=== PATIENT | female | born 1940 | race Caucasian/White ===

== ENCOUNTER → 2016-12-24 | Outpatient (CLI) | payer MEDICARE, BC ==
[~2016-12-24] VITALS: Ht 160 cm; Wt 84.8 kg
[~2016-12-24] MED LIST: AMLO5TAB2 PO; CALCTAB29 PO; COMBAER6 INH; DIOV160T6 PO; FLON1SPR; HYDR25TAB PO; LEVO137T2 PO; METO100T PO; NS 1,000 ML IV ONE; PROPOFOL 200 MG/20 ML VIAL As Ordered ONE; ROPI0.5T PO; VITA100037 PO
--- NOTE | 2016-12-24 09:41 | ROOR ---
Patient Name: Saundra Bedoya Procedure Date: 12/24/2016 9:10 AM Date of : 1940 Age: 76 Room: [facility] Gender: Female Note Status: Finalized Procedure: Total Colonoscopy to Cecum Indications: Screening in patient at increased risk: Colorectal cancer in sister 60 or older, Last colonoscopy: 2007 Providers: Adalberto Paredes MD Referring MD: Refugio Waters MD Requesting Provider: Medicines: Monitored Anesthesia Care Complications: No immediate complications. Procedure: Pre-Anesthesia Assessment: - The heart rate, respiratory rate, oxygen saturations, blood pressure, adequacy of pulmonary ventilation, and response to care were monitored throughout the procedure. The Colonoscope was introduced through the anus and advanced to the cecum, identified by appendiceal orifice and ileocecal valve. The colonoscopy was performed without difficulty. The patient tolerated the procedure well. The quality of the bowel preparation was excellent. Findings: The perianal and digital rectal examinations were normal. Non-bleeding internal hemorrhoids were found during retroflexion. The hemorrhoids were small and Grade I (internal hemorrhoids that do not prolapse). Multiple small and large-mouthed diverticula were found in the recto-sigmoid colon, sigmoid colon and descending colon. The exam was otherwise without abnormality on direct and retroflexion views. Impression: - Non-bleeding internal hemorrhoids. - Diverticulosis in the recto-sigmoid colon, in the sigmoid colon and in the descending colon. - The examination was otherwise normal on direct and retroflexion views. - No specimens collected. - The exam was otherwise normal to the cecum. Recommendation: - Patient has a contact number available for emergencies. The signs and symptoms of potential delayed complications were discussed with the patient. Return to normal activities tomorrow. Written discharge instructions were provided to the patient. - High fiber diet. - Discharge patient to home. - Continue present medications. - Repeat colonoscopy in 5 years for screening purposes. - Return to referring physician. - The findings and recommendations were discussed with the patient's family. Adalberto Paredes MD Adalberto Paredes MD 12/24/2016 9:40:59 AM This report has been signed electronically. Number of Addenda: 0 Note Initiated On: 12/24/2016 9:10 AM Estimated Blood Loss: Estimated blood loss: none.
[2016-12-24 10:01] VITALS: BP 124/73
== END | disposition home or self-care (01) ==
LOC: M OPP 08:27
PROVIDERS: ATTEND Internal Medicine Gastroenterology
DX: Z12.11 Encounter for screening for malignant neoplasm of colon (principal); K64.0 First degree hemorrhoids; K57.30 Diverticulosis of large intestine without perforation or abscess without bleeding; Z80.0 Family history of malignant neoplasm of digestive organs; Z86.010 Personal history of colon polyps; I12.9 Hypertensive chronic kidney disease with stage 1 through stage 4 chronic kidney disease, or unspecified chronic kidney disease; E03.9 Hypothyroidism, unspecified; E04.1 Nontoxic single thyroid nodule; M19.90 Unspecified osteoarthritis, unspecified site; M89.9 Disorder of bone, unspecified; G25.81 Restless legs syndrome; Z78.0 Asymptomatic menopausal state; J44.9 Chronic obstructive pulmonary disease, unspecified; R06.02 Shortness of breath; N18.9 Chronic kidney disease, unspecified; Z87.891 Personal history of nicotine dependence; Z88.8 Allergy status to other drugs, medicaments and biological substances; Z91.012 Allergy to eggs; Z79.899 Other long term (current) drug therapy

== ENCOUNTER → 2017-02-16 | Outpatient (CLI) | payer MEDICARE, BC ==
[~2017-02-16] MED LIST changes: -METO100T PO; +METO100T5 PO; -NS 1,000 ML IV ONE; -PROPOFOL 200 MG/20 ML VIAL As Ordered ONE; -VITA100037 PO; +VITA100067 PO
--- NOTE | 2017-02-18 09:06 | DEXA ---
AP SPINE L1 - L4 1.076 -0.9 0.9 LT FEMUR TOTAL 0.887 -1.0 0.8 RT FEMUR TOTAL 0.822 -1.5 0.3 TOTAL BODY TOTAL OTHER DUAL FEMUR FRAX* ASSESSMENT Risk factors: History of fracture as an adult, premature menopause. 10 year probability of fracture Major osteoporotic fracture 19.1 % Hip fracture 4.6 % COMMENTS: Normal bone densitometry of the spine. There is low bone density of the hips. The increased density of the spine does not represent a significant change. The decreased density of the left hip does not represent a significant change. The decreased density of the right hip does not represent a significant change. The density of the spine has increased 16.6% since the initial exam on 2005. The spine density has increased 1.5% since the most recent exam on 05/05/2014. The density of the left hip has decreased 3.3% since the initial exam on 2002. The density of the left hip has decreased 0.2% since the most recent exam on . The density of the right hip has decreased 10.7% since the initial exam on 01/25. The density of the right hip has decreased 1.7% since the most recent exam on . FOLLOW-UP: Recommendation for the next bone density exam: 2 years. SEAN
== END ==
LOC: M WHC 13:54
PROVIDERS: ATTEND Family Medicine
DX: Z13.820 Encounter for screening for osteoporosis (principal); Z78.0 Asymptomatic menopausal state

== ENCOUNTER → 2017-02-24 | Outpatient (CLI) | payer MEDICARE, BC ==
[2017-02-24 13:28] LABS: MEAN CORPUSCULAR HEMOGLOBIN 31.6 pg (27.0-33.0); MEAN CORPUSCULAR HGB CONC 33.4 g/dl (32.0-36.5); MEAN CORPUSCULAR VOLUME 94.5 fl (80.0-96.0); RED CELL DISTRIBUTION WIDTH 12.4 % (11.5-14.5); WHITE BLOOD COUNT 4.4 K/mm3 (4.0-10.0)
[2017-02-24 13:37] LABS: ALBUMIN 3.7 GM/DL (3.2-5.2); ALBUMIN/GLOBULIN RATIO 1.12 (1.00-1.93); BILIRUBIN,TOTAL 0.4 MG/DL (0.2-1.0); CALCIUM LEVEL 9.3 MG/DL (8.8-10.2); CREATININE FOR GFR 1.01 MG/DL (0.55-1.02); FREE T4 1.17 NG/DL (0.76-1.46); GLOMERULAR FILTRATION RATE 56.9 (>39); POTASSIUM SERUM 3.9 MEQ/L (3.5-5.1)
== END ==
LOC: M WUC 09:05
PROVIDERS: ATTEND Family Medicine
DX: G25.81 Restless legs syndrome (principal); I10 Essential (primary) hypertension; E03.9 Hypothyroidism, unspecified; R73.01 Impaired fasting glucose

== ENCOUNTER → 2017-06-09 | Outpatient (REF) | payer MEDICARE, BC | LOC: M LAB REF 17:21 | PROVIDERS: ATTEND Ophthalmology | DX: L82.1 Other seborrheic keratosis (principal) ==

== ENCOUNTER → 2017-08-27 | Outpatient (CLI) | payer MEDICARE, BC ==
[2017-08-27 17:13] LABS: TOTAL 25(OH) VITAMIN D 34.6 NG/ML (30.0-100.0)
[2017-08-27 18:23] LABS: ALBUMIN 3.7 GM/DL (3.2-5.2); ALKALINE PHOSPHATASE 72 U/L (45-117); ALT/SGPT 17 U/L (12-78); ANION GAP 8 MEQ/L (8-16); AST/SGOT 14 U/L (7-37); BILIRUBIN,TOTAL 0.4 MG/DL (0.2-1.0); BLOOD UREA NITROGEN 15 MG/DL (7-18); CALCIUM LEVEL 8.9 MG/DL (8.8-10.2); CARBON DIOXIDE LEVEL 31 MEQ/L (21-32); CHLORIDE LEVEL 102 MEQ/L (98-107); CREATININE FOR GFR 0.91 MG/DL (0.55-1.02); FERRITIN 102 NG/ML (8-252); FREE T4 1.46 NG/DL (0.76-1.46); GLOMERULAR FILTRATION RATE > 60.0 (>39); GLUCOSE, FASTING 90 MG/DL (83-110); SODIUM LEVEL 141 MEQ/L (136-145); THYROID STIMULATING HORMONE 0.645 uIU/ML (0.358-3.740); TOTAL PROTEIN 7.4 GM/DL (6.4-8.2)
== END ==
LOC: M WUC 11:31
DX: E03.9 Hypothyroidism, unspecified (principal); E55.9 Vitamin D deficiency, unspecified; G25.81 Restless legs syndrome; I10 Essential (primary) hypertension; Z79.899 Other long term (current) drug therapy
CPT/HCPCS: 84443

== ENCOUNTER → 2018-01-28 | Outpatient (CLI) | payer MEDICARE, BC ==
[2018-01-28 12:42] LABS: HEMATOCRIT 44.2 % (36.0-47.0); HEMOGLOBIN 14.3 g/dl (12.0-15.5); MEAN CORPUSCULAR HGB CONC 32.4 g/dl (32.0-36.5); MEAN CORPUSCULAR VOLUME 92.9 fl (80.0-96.0); PLATELET COUNT, AUTOMATED 254 10^3/uL (150-450); RED BLOOD COUNT 4.76 10^6/uL (4.00-5.40); RED CELL DISTRIBUTION WIDTH 12.3 % (11.5-14.5); WHITE BLOOD COUNT 4.6 10^3/uL (4.0-10.0)
[2018-01-28 13:04] LABS: TOTAL 25(OH) VITAMIN D 24.4 NG/ML (30.0-100.0)
[2018-01-28 13:11] LABS: ESTIMATED AVERAGE GLUCOSE 128 MG/DL (60-110); HEMOGLOBIN A1c 6.1 %
[2018-01-28 13:16] LABS: ALBUMIN 3.7 GM/DL (3.2-5.2); ALBUMIN/GLOBULIN RATIO 1.06 (1.00-1.93); ALKALINE PHOSPHATASE 66 U/L (45-117); ALT/SGPT 20 U/L (12-78); ANION GAP 6 MEQ/L (8-16); AST/SGOT 14 U/L (7-37); BILIRUBIN,TOTAL 0.4 MG/DL (0.2-1.0); BLOOD UREA NITROGEN 15 MG/DL (7-18); CALCIUM LEVEL 8.9 MG/DL (8.8-10.2); CARBON DIOXIDE LEVEL 33 MEQ/L (21-32); CHLORIDE LEVEL 102 MEQ/L (98-107); CHOLESTEROL LEVEL 172 MG/DL (<200); CHOLESTEROL RISK RATIO 3.822 (<5); CREATININE FOR GFR 1.07 MG/DL (0.55-1.30); FREE T4 1.22 NG/DL (0.76-1.46); GLOMERULAR FILTRATION RATE 53.1 (>39); GLUCOSE, FASTING 92 MG/DL (70-100); HDL CHOLESTEROL 45 MG/DL (>40); LDL CHOLESTEROL 101.8 MG/DL (<100); NON-HDL-C 127 MG/DL; POTASSIUM SERUM 3.8 MEQ/L (3.5-5.1); SODIUM LEVEL 141 MEQ/L (136-145); THYROID STIMULATING HORMONE 0.966 uIU/ML (0.358-3.740); TOTAL PROTEIN 7.2 GM/DL (6.4-8.2); TRIGLYCERIDES LEVEL 126 MG/DL (<150)
== END ==
LOC: M WUC 09:03
DX: J44.9 Chronic obstructive pulmonary disease, unspecified (principal); R73.03 Prediabetes; E03.9 Hypothyroidism, unspecified; E78.5 Hyperlipidemia, unspecified; E55.9 Vitamin D deficiency, unspecified
CPT/HCPCS: 84443

== ENCOUNTER → 2018-03-05 | Outpatient (CLI) | payer MEDICARE, BC ==
[2018-03-05 13:41] LABS: BASO # 0.1 10^3/uL (0.0-0.2); BASO % 1.9 % (0.0-1.0); EOS # 0.2 10^3/uL (0.0-0.50); EOS % 4.2 % (0.0-3.0); HEMATOCRIT 43.6 % (36.0-47.0); IMMATURE GRANULOCYTE % 0.2 % (0-3.0); LYMPH # 1.4 10^3/uL (1.5-4.5); MEAN CORPUSCULAR HEMOGLOBIN 30.5 pg (27.0-33.0); MEAN CORPUSCULAR HGB CONC 32.1 g/dl (32.0-36.5); MONO # 0.5 10^3/uL (0.0-0.8); MONO % 9.8 % (0.0-5.0); NEUTROPHILS # 2.6 10^3/uL (1.8-7.7); NEUTROPHILS % 54.9 % (36.0-66.0); PLATELET COUNT, AUTOMATED 241 10^3/uL (150-450); RED BLOOD COUNT 4.59 10^6/uL (4.00-5.40); RED CELL DISTRIBUTION WIDTH 12.2 % (11.5-14.5); WHITE BLOOD COUNT 4.8 10^3/uL (4.0-10.0)
[2018-03-05 13:58] LABS: VITAMIN B12 LEVEL 593 PG/ML (247-911)
[2018-03-05 13:59] LABS: FOLATE 10.1 NG/ML (>5.4)
[2018-03-05 14:07] LABS: ALBUMIN 3.6 GM/DL (3.2-5.2); ALBUMIN/GLOBULIN RATIO 1.03 (1.00-1.93); ALKALINE PHOSPHATASE 60 U/L (45-117); ALT/SGPT 19 U/L (12-78); ANION GAP 5 MEQ/L (8-16); AST/SGOT 12 U/L (7-37); BILIRUBIN,TOTAL 0.4 MG/DL (0.2-1.0); BLOOD UREA NITROGEN 15 MG/DL (7-18); CARBON DIOXIDE LEVEL 32 MEQ/L (21-32); CHLORIDE LEVEL 105 MEQ/L (98-107); CREATININE FOR GFR 0.99 MG/DL (0.55-1.30); FERRITIN 84 NG/ML (8-252); GLOMERULAR FILTRATION RATE 58.1 (>39); GLUCOSE, FASTING 89 MG/DL (70-100); POTASSIUM SERUM 3.8 MEQ/L (3.5-5.1); RHEUMATOID FACTOR QUANT < 10.0 IU/ML (<15.0); SODIUM LEVEL 142 MEQ/L (136-145); THYROID STIMULATING HORMONE 0.927 uIU/ML (0.358-3.740); TOTAL PROTEIN 7.1 GM/DL (6.4-8.2)
[2018-03-05 14:21] LABS: ERYTHROCYTE SEDIMENTATION RATE 12 mm/hr (0-30)
[2018-03-05 14:27] LABS: ESTIMATED AVERAGE GLUCOSE 126 MG/DL (60-110)
[2018-03-08 13:51] LABS: ALBUMIN 4.05 GM/DL (3.29-5.55); ALBUMIN % 57.1 % (55.8-66.1); ALPHA-1-GLOBULIN % 4.4 % (2.9-4.9); ALPHA-1-GLOBULINS 0.31 GM/DL (0.17-0.41); ALPHA-2-GLOBULINS 0.75 GM/DL (0.42-0.99); ALPHA-2-GLOBULINS % 10.5 % (7.1-11.8); BETA-1-GLOBULINS % 5.7 % (4.7-7.2); BETA-2-GLOBULINS 0.35 GM/DL (0.19-0.55); BETA-2-GLOBULINS % 4.9 % (3.2-6.5); GAMMA GLOBULIN % 17.4 % (11.1-18.8); GAMMA GLOBULINS 1.24 GM/DL (0.65-1.58)
[2018-03-09 11:13] LABS: DRVV SCREEN 37.3 SEC
[2018-03-09 11:15] LABS: PTT LUPUS TYPE ANTICOAG SCREEN 0.9 (0-1.2)
[2018-03-11 08:11] LABS: ANCA-ATYPICAL <1:20 titer (Neg:<1:20); ANTI DOUBLE STRAND-DNA AB <1 IU/mL (0-9); ANTINUCLEAR ANTIBODIES DIRECT Negative (Negative); CYTOPLASMIC NEUTROP AB ANCA-C <1:20 titer (Neg:<1:20); PERINUCLEAR AB ANCA-P <1:20 titer (Neg:<1:20); SJOGREN'S ANTI SS-A <0.2 AI (0.0-0.9); SJOGREN'S ANTI SS-B <0.2 AI (0.0-0.9); VITAMIN B1 LEVEL WHOLE BLOOD 185.5 nmol/L (66.5-200.0); VITAMIN B6,PYRIDOXAL PHOSPHATE 6.3 ug/L (2.0-32.8); VITAMIN E(ALPHA TOCOPHEROL) 8.3 mg/L (9.0-29.0); VITAMIN E(GAMMA TOCOPHEROL) 1.6 mg/L (0.5-4.9)
== END ==
LOC: M WUC 09:03
DX: G60.9 Hereditary and idiopathic neuropathy, unspecified (principal); Z79.899 Other long term (current) drug therapy; G25.81 Restless legs syndrome; R73.03 Prediabetes; J44.9 Chronic obstructive pulmonary disease, unspecified; E55.9 Vitamin D deficiency, unspecified; E03.9 Hypothyroidism, unspecified; I10 Essential (primary) hypertension; E78.5 Hyperlipidemia, unspecified
CPT/HCPCS: 82746

== ENCOUNTER → 2018-07-07 | Outpatient (CLI) | payer MEDICARE, BC | LOC: M WHC 13:59 | DX: Z12.31 Encounter for screening mammogram for malignant neoplasm of breast (principal) | CPT/HCPCS: 77067 ==

== ENCOUNTER → 2018-07-28 | Outpatient (CLI) | payer MEDICARE, BC ==
[~2018-07-28] MED LIST changes: -AMLO5TAB2 PO; +AMLO5TAB4 PO
[2018-07-28 12:02] LABS: CALCIUM LEVEL 8.7 MG/DL (8.8-10.2); CREATININE FOR GFR 1.04 MG/DL (0.55-1.30); FREE T4 1.18 NG/DL (0.76-1.46); GLOMERULAR FILTRATION RATE 54.8 (>39); POTASSIUM SERUM 3.9 MEQ/L (3.5-5.1); THYROID STIMULATING HORMONE 1.23 uIU/ML (0.358-3.740)
== END ==
LOC: M WUC 09:17
PROVIDERS: ATTEND Family Medicine
DX: E03.9 Hypothyroidism, unspecified (principal); I10 Essential (primary) hypertension

== ENCOUNTER → 2019-01-25 | Outpatient (CLI) | payer MEDICARE, BC ==
[~2019-01-25] MED LIST changes: -AMLO5TAB4 PO; +AMLO5TAB6 PO
[2019-01-25 13:10] LABS: ALBUMIN 3.6 GM/DL (3.2-5.2); BILIRUBIN,TOTAL 0.4 MG/DL (0.2-1.0); CHOLESTEROL RISK RATIO 3.333 (<5); FREE T4 1.26 NG/DL (0.76-1.46); GLOMERULAR FILTRATION RATE 57.2 (>39); POTASSIUM SERUM 3.7 MEQ/L (3.5-5.1); THYROID STIMULATING HORMONE 1.51 uIU/ML (0.358-3.740); TOTAL PROTEIN 7.4 GM/DL (6.4-8.2)
[2019-01-25 13:11] LABS: TOTAL 25(OH) VITAMIN D 42.8 NG/ML (30.0-100.0)
== END ==
LOC: M WUC 10:00
PROVIDERS: ATTEND Family Medicine
DX: I10 Essential (primary) hypertension (principal); E03.9 Hypothyroidism, unspecified; E55.9 Vitamin D deficiency, unspecified

== ENCOUNTER → 2019-04-04 | Outpatient (CLI) | payer MEDICARE, BC ==
--- NOTE | 2019-04-06 15:46 | DEXA ---
AP SPINE L1 - L4 1.058 -1.0 0.8 LT FEMUR TOTAL 0.871 -1.1 0.8 LT NECK 0.793 -1.8 0.3 RT FEMUR TOTAL 0.822 -1.5 0.4 RT NECK 0.752 -2.1 0.0 TOTAL BODY TOTAL OTHER COMMENTS: There is low bone density of the spine and hips. The increased density of the spine does not represent a significant change. The decreased density of the left hip does not represent a significant change. The density of the spine has increased 14.6% since the initial exam on 05/08/2006. The spine density has increased 0.6% since the most recent exam on 02/16/2017. The density of the left hip has decreased 9.9% since the initial exam on 01/25/2003. The density of the left hip has decreased 1.8% since the most recent exam on 02/16/2017. The density of the right hip has decreased 10.7% since the initial exam on 01/25/2003. The density of the right hip is 0.0% since the most recent exam on 02/16/2017. FOLLOW-UP: Recommendation for the next bone density exam: 2 years. SEAN
== END ==
LOC: M WHC 09:55
PROVIDERS: ATTEND Obstetrics & Gynecology
DX: M85.89 Other specified disorders of bone density and structure, multiple sites (principal)

== ENCOUNTER → 2019-10-11 | Outpatient (CLI) | payer MEDICARE, BC ==
[~2019-10-11] MED LIST changes: -ROPI0.5T PO; +ROPI0.5T3 PO
--- NOTE | 2019-10-11 15:08 | REPMRS ---
Patient History The patient states she had a clinical breast exam in November 2018. Family history of ovarian cancer at age 70 in maternal aunt, ovarian cancer at age 70 in maternal aunt, colorectal cancer under age 50 in sister. Took hormonal contraceptives for 2 months. Digital Woman Screen Mammo: October 11, 2019 - Exam #: [id number] Bilateral CC and MLO view(s) were taken. Technologist: Fadia Hurst, Technologist Prior study comparison: July 07, 2018, bilateral digital woman screen mammo performed at [facility]. June 17, 2017, digital woman screen mammo performed at [facility]. June 11, 2016, digital woman screen mammo performed at [facility]. FINDINGS: There are scattered fibroglandular densities. There has been no change in the appearance of the mammogram from the prior studies. There is a mild amount of scattered fibroglandular density which is fairly symmetric. There is no interval development of dominant mass, architectural distortion, or grouped microcalcification suggestive of malignancy. 3-D tomosynthesis shows no additional findings. Assessment: BI-RADS/ACR category 1 mammogram. Negative Mammogram. Recommendation Routine screening mammogram of both breasts in 1 year (for women over age 40). This patient's Lifetime Breast Cancer Risk is estimated at 1.6 %. This mammogram was interpreted with the aid of an FDA-approved computer-aided dectection system. Electronically Signed By: Manolo Pinon MD 10/11/19 [id number]
== END ==
LOC: M WHC 12:57
PROVIDERS: ATTEND Obstetrics & Gynecology
DX: Z12.31 Encounter for screening mammogram for malignant neoplasm of breast (principal); Z80.41 Family history of malignant neoplasm of ovary; Z80.0 Family history of malignant neoplasm of digestive organs

== ENCOUNTER → 2020-03-05 | Outpatient (REF) | payer MEDICARE, BC ==
[~2020-03-05] MED LIST changes: +AMLO1TAB24 PO; -AMLO5TAB6 PO
[2020-03-30 21:32] LABS: HEMATOCRIT 45.3 % (36.0-47.0); HEMOGLOBIN 14.2 g/dl (12.0-15.5); MEAN CORPUSCULAR HEMOGLOBIN 30.1 pg (27.0-33.0); MEAN CORPUSCULAR HGB CONC 31.3 g/dl (32.0-36.5); MEAN CORPUSCULAR VOLUME 96.2 fl (80.0-96.0); PLATELET COUNT, AUTOMATED 260 10^3/uL (150-450); RED BLOOD COUNT 4.71 10^6/uL (4.00-5.40); WHITE BLOOD COUNT 5.8 10^3/uL (4.0-10.0)
[2020-04-06 10:59] LABS: ALBUMIN 3.7 GM/DL (3.2-5.2); BILIRUBIN,TOTAL 0.4 MG/DL (0.2-1.0); CALCIUM LEVEL 9.3 MG/DL (8.8-10.2); CHOLESTEROL RISK RATIO 3.777 (<5); CREATININE FOR GFR 1.09 MG/DL (0.55-1.30); FREE T4 1.41 NG/DL (0.76-1.46); GLOMERULAR FILTRATION RATE 51.7 (>39); POTASSIUM SERUM 3.9 MEQ/L (3.5-5.1); THYROID STIMULATING HORMONE 1.48 uIU/ML (0.358-3.740); TOTAL PROTEIN 7.2 GM/DL (6.4-8.2)
[2020-04-06 11:00] LABS: HEMOGLOBIN A1c 5.8 %
== END ==
LOC: M WUC 09:59
PROVIDERS: ATTEND Family Medicine
DX: J30.9 Allergic rhinitis, unspecified (principal); E78.5 Hyperlipidemia, unspecified; R73.03 Prediabetes; I10 Essential (primary) hypertension; E03.9 Hypothyroidism, unspecified

== ENCOUNTER → 2020-11-12 | Outpatient (CLI) | payer MEDICARE, BC ==
[~2020-11-12] MED LIST changes: +HYDR-3490 PO; -HYDR25TAB PO
--- NOTE | 2020-11-12 14:26 | REPMRS ---
Patient History The patient states she had a clinical breast exam in January 2020. Family history of ovarian cancer at age 70 in maternal aunt, ovarian cancer at age 70 in maternal aunt, colorectal cancer under age 50 in sister. Took hormonal contraceptives for 2 months. 3D TOMOSYNTHESIS WAS PERFORMED. The Cristina Cabello lifetime risk for breast cancer is 1.2%. Volpara breast density b. Digital Woman Screen Mammo: November 12, 2020 - Exam #: [id number] Bilateral CC and MLO view(s) were taken. Technologist: Fadia Hurst, Technologist Prior study comparison: October 11, 2019, bilateral digital woman screen mammo performed at [facility]. July 07, 2018, bilateral digital woman screen mammo performed at [facility]. FINDINGS: There are scattered fibroglandular densities. There has been no change in the appearance of the mammogram from the prior studies. There is a mild amount of residual fibroglandular tissue which is fairly symmetric. There is no interval development of dominant mass, architectural distortion, or clustered microcalcification suggestive of malignancy. Assessment: BI-RADS/ACR category 1 mammogram. Negative Mammogram. Recommendation Routine screening mammogram in 1 year (for women over age 40). This mammogram was interpreted with the aid of an FDA-approved computer-aided dectection system. Electronically Signed By: Michael Adkins MD 11/12/20 2075
== END ==
LOC: M WHC 11:18
PROVIDERS: ATTEND Obstetrics & Gynecology
DX: Z12.31 Encounter for screening mammogram for malignant neoplasm of breast (principal)

== ENCOUNTER → 2020-12-31 | Outpatient (CLI) | payer MEDICARE, BC ==
[2020-12-31 12:14] LABS: HEMATOCRIT 46.1 % (36.0-47.0); HEMOGLOBIN 14.6 g/dl (12.0-15.5); MEAN CORPUSCULAR HEMOGLOBIN 30.6 pg (27.0-33.0); MEAN CORPUSCULAR HGB CONC 31.7 g/dl (32.0-36.5); MEAN CORPUSCULAR VOLUME 96.6 fl (80.0-96.0); PLATELET COUNT, AUTOMATED 264 10^3/uL (150-450); RED BLOOD COUNT 4.77 10^6/uL (4.00-5.40); WHITE BLOOD COUNT 6.1 10^3/uL (4.0-10.0)
[2020-12-31 13:40] LABS: ALBUMIN 3.8 GM/DL (3.2-5.2); BILIRUBIN,TOTAL 0.5 MG/DL (0.2-1.0); CALCIUM LEVEL 9.3 MG/DL (8.8-10.2); CHOLESTEROL RISK RATIO 3.692 (<5); CREATININE FOR GFR 1.01 MG/DL (0.55-1.30); FREE T4 1.21 NG/DL (0.76-1.46); GLOMERULAR FILTRATION RATE 56.3 (>39); POTASSIUM SERUM 3.8 MEQ/L (3.5-5.1); THYROID STIMULATING HORMONE 1.51 uIU/ML (0.358-3.740); TOTAL 25(OH) VITAMIN D 26.7 NG/ML (30.0-100.0); TOTAL PROTEIN 7.4 GM/DL (6.4-8.2)
[2020-12-31 14:29] LABS: HEMOGLOBIN A1c 5.8 %
== END ==
LOC: M WUC 09:07
PROVIDERS: ATTEND Family Medicine
DX: I10 Essential (primary) hypertension (principal); E03.9 Hypothyroidism, unspecified; R73.03 Prediabetes; E78.5 Hyperlipidemia, unspecified; E55.9 Vitamin D deficiency, unspecified; G25.81 Restless legs syndrome; J44.9 Chronic obstructive pulmonary disease, unspecified; Z79.899 Other long term (current) drug therapy

== ENCOUNTER → 2021-07-12 | Outpatient (CLI) | payer MEDICARE, BC ==
[2021-07-12 13:26] LABS: ALBUMIN 3.8 GM/DL (3.2-5.2); CALCIUM LEVEL 9.8 MG/DL (8.8-10.2); CREATININE FOR GFR 1.1 MG/DL (0.55-1.30); PHOSPHORUS LEVEL 3.6 MG/DL (2.5-4.9); POTASSIUM SERUM 3.9 MEQ/L (3.5-5.1); TOTAL 25(OH) VITAMIN D 40.2 NG/ML (30.0-100.0)
== END ==
LOC: M WUC 09:47
PROVIDERS: ATTEND Family Medicine
DX: E55.9 Vitamin D deficiency, unspecified (principal)

== ENCOUNTER → 2021-11-04 | Outpatient (CLI) | payer MEDICARE, BC | LOC: M WHC 13:58 | PROVIDERS: ATTEND Family Medicine | DX: E04.9 Nontoxic goiter, unspecified (principal); I10 Essential (primary) hypertension ==

== ENCOUNTER → 2021-12-05 | Outpatient (CLI) | payer MEDICARE, BC | LOC: M WHC 12:18 | PROVIDERS: ATTEND Obstetrics & Gynecology | DX: Z12.31 Encounter for screening mammogram for malignant neoplasm of breast (principal) ==

== ENCOUNTER → 2022-01-10 | Outpatient (CLI) | payer MEDICARE, BC ==
[2022-01-10 16:20] LABS: HEMATOCRIT 45.8 % (36.0-47.0); HEMOGLOBIN 14.4 g/dl (12.0-15.5); MEAN CORPUSCULAR HEMOGLOBIN 30.1 pg (27.0-33.0); MEAN CORPUSCULAR HGB CONC 31.4 g/dl (32.0-36.5); MEAN CORPUSCULAR VOLUME 95.8 fl (80.0-96.0); PLATELET COUNT, AUTOMATED 290 10^3/uL (150-450); RED BLOOD COUNT 4.78 10^6/uL (4.00-5.40); WHITE BLOOD COUNT 5.5 10^3/uL (4.0-10.0)
[2022-01-10 18:04] LABS: ALBUMIN 3.5 GM/DL (3.2-5.2); BILIRUBIN,TOTAL 0.6 MG/DL (0.2-1.0); CHOLESTEROL RISK RATIO 3.083 (<5); CREATININE FOR GFR 1.12 MG/DL (0.55-1.30); FREE T4 1.39 NG/DL (0.76-1.46); GLOMERULAR FILTRATION RATE 49.8 (>32); POTASSIUM SERUM 3.9 MEQ/L (3.5-5.1); THYROID STIMULATING HORMONE 1.21 uIU/ML (0.358-3.740); TOTAL 25(OH) VITAMIN D 46.8 NG/ML (30.0-100.0); TOTAL PROTEIN 7.3 GM/DL (6.4-8.2)
[2022-01-10 19:43] LABS: HEMOGLOBIN A1c 5.7 %
== END ==
LOC: M WUC 10:37
PROVIDERS: ATTEND Family Medicine
DX: I10 Essential (primary) hypertension (principal); E03.9 Hypothyroidism, unspecified; E04.1 Nontoxic single thyroid nodule; E55.9 Vitamin D deficiency, unspecified; J30.9 Allergic rhinitis, unspecified; J44.9 Chronic obstructive pulmonary disease, unspecified; R73.03 Prediabetes; E78.5 Hyperlipidemia, unspecified

== ENCOUNTER → 2022-07-15 | Outpatient (CLI) | payer MEDICARE, BC ==
[2022-07-15 13:23] LABS: HEMATOCRIT 44.8 % (36.0-47.0); HEMOGLOBIN 13.8 g/dl (12.0-15.5); MEAN CORPUSCULAR HGB CONC 30.8 g/dl (32.0-36.5); MEAN CORPUSCULAR VOLUME 97.4 fl (80.0-96.0); PLATELET COUNT, AUTOMATED 240 10^3/uL (150-450); WHITE BLOOD COUNT 4.8 10^3/uL (4.0-10.0)
[2022-07-15 13:37] LABS: TOTAL 25(OH) VITAMIN D 37.9 NG/ML (20.0-100.0)
[2022-07-15 13:39] LABS: FREE T4 1.49 NG/DL (0.89-1.76); THYROID STIMULATING HORMONE 0.664 uIU/ML (0.55-4.78)
[2022-07-15 13:42] LABS: ALBUMIN 3.7 G/DL (3.2-5.2); BILIRUBIN,TOTAL 0.5 MG/DL (0.3-1.2); CALCIUM LEVEL 9.5 MG/DL (8.3-10.6); CHOLESTEROL RISK RATIO 3.71 (<5); CREATININE FOR GFR 0.98 MG/DL (0.55-1.30); GLOMERULAR FILTRATION RATE 58.1 (>32); HDL CHOLESTEROL 44.1 MG/DL (>40); LDL CHOLESTEROL 105.9 MG/DL (<100); POTASSIUM SERUM 3.9 MMOL/L (3.5-5.1)
[2022-07-15 13:55] LABS: HEMOGLOBIN A1c 5.4 % (4.0-6.0)
== END ==
LOC: M WUC 09:59
PROVIDERS: ATTEND Family Medicine
DX: I10 Essential (primary) hypertension (principal); E03.9 Hypothyroidism, unspecified; E55.9 Vitamin D deficiency, unspecified; R73.03 Prediabetes; E04.1 Nontoxic single thyroid nodule; E78.5 Hyperlipidemia, unspecified; J30.9 Allergic rhinitis, unspecified

== ENCOUNTER 2022-12-29 09:29 | Day surgery (SDC) | payer MEDICARE, BC ==
[~2022-12-29] VITALS: Ht 160 cm; Wt 81.6 kg
[~2022-12-29 09:29] MED LIST changes: +CALC1TAB74 PO; +CYCLOPENTOLATE 1% OPHTH SOLN 2ML BTL OD SCH; +ERGO500029 PO; +FLURBIPROFEN 0.03% OPHTH SOLN 2.5 ML OD SCH; +IRBE150T7 PO; +LIDOCAINE 1% SDV 5ML VIAL As Ordered ONE; +LR 1,000 ML IV SCH; +PHENYLEPHRINE 2.5% OPHTH SOL 2ML OD SCH; +TETRACAINE 0.5% OPHTH SOLN 4ML OD SCH
[2022-12-29] MEDS ORDERED: fentaNYL 100 MCG/2 ML INJECTION As Ordered ONE (13:08)
[2022-12-29] MEDS ORDERED: MIDAZOLAM INJ 2MG/2ML VIAL As Ordered ONE (13:08)
[2022-12-29 13:55] VITALS: BP 180/98
== END 2022-12-29 14:00 | disposition home or self-care (01) ==
LOC: M SDC 09:29
PROVIDERS: ATTEND Ophthalmology
DX: H25.11 Age-related nuclear cataract, right eye (principal); I10 Essential (primary) hypertension; E03.9 Hypothyroidism, unspecified; E04.1 Nontoxic single thyroid nodule; J44.9 Chronic obstructive pulmonary disease, unspecified; G25.81 Restless legs syndrome; Z87.891 Personal history of nicotine dependence; J30.2 Other seasonal allergic rhinitis; Z88.8 Allergy status to other drugs, medicaments and biological substances; Z91.012 Allergy to eggs; Z79.899 Other long term (current) drug therapy
CPT/HCPCS: 66984; J2250; J3010; V2632

== ENCOUNTER 2023-02-02 06:04 | Day surgery (SDC) | payer MEDICARE, BC ==
[~2023-02-02] VITALS: Ht 160 cm; Wt 82.2 kg
[~2023-02-02 06:04] MED LIST changes: -CYCLOPENTOLATE 1% OPHTH SOLN 2ML BTL OD SCH; +CYCLOPENTOLATE 1% OPHTH SOLN 2ML BTL OS SCH; -FLURBIPROFEN 0.03% OPHTH SOLN 2.5 ML OD SCH; +FLURBIPROFEN 0.03% OPHTH SOLN 2.5 ML OS SCH; -LIDOCAINE 1% SDV 5ML VIAL As Ordered ONE; -LR 1,000 ML IV SCH; -PHENYLEPHRINE 2.5% OPHTH SOL 2ML OD SCH; +PHENYLEPHRINE 2.5% OPHTH SOL 2ML OS SCH; +SYNT137T7 PO; -TETRACAINE 0.5% OPHTH SOLN 4ML OD SCH; +TETRACAINE 0.5% OPHTH SOLN 4ML OS SCH
[2023-02-02] MEDS ORDERED: LIDOCAINE 1% SDV 5ML VIAL As Ordered ONE (06:38)
[2023-02-02] MEDS ORDERED: LR 1,000 ML IV SCH (07:00)
[2023-02-02] MEDS ORDERED: fentaNYL 100 MCG/2 ML INJECTION As Ordered ONE (07:13)
[2023-02-02] MEDS ORDERED: MIDAZOLAM INJ 2MG/2ML VIAL As Ordered ONE (07:13)
[2023-02-02] MEDS ORDERED: POVIDONE-IODINE 5% OPHTH PREP SOL 30ML As Ordered ONE (07:45)
[2023-02-02 08:27] VITALS: BP 170/88; TEMP 97.3; O2SAT 96
== END 2023-02-02 08:47 | disposition home or self-care (01) ==
LOC: M SDC 06:04
PROVIDERS: ATTEND Ophthalmology
DX: H25.12 Age-related nuclear cataract, left eye (principal); I10 Essential (primary) hypertension; E03.9 Hypothyroidism, unspecified; Z87.891 Personal history of nicotine dependence; Z79.899 Other long term (current) drug therapy; Z88.8 Allergy status to other drugs, medicaments and biological substances; Z91.012 Allergy to eggs; J30.2 Other seasonal allergic rhinitis; J44.9 Chronic obstructive pulmonary disease, unspecified; G25.81 Restless legs syndrome
CPT/HCPCS: 66984; J2250; J3010; V2632

== ENCOUNTER → 2023-03-05 | Outpatient (REF) | payer MEDICARE, BC ==
[~2023-03-05] MED LIST changes: -CYCLOPENTOLATE 1% OPHTH SOLN 2ML BTL OS SCH; -FLURBIPROFEN 0.03% OPHTH SOLN 2.5 ML OS SCH; -PHENYLEPHRINE 2.5% OPHTH SOL 2ML OS SCH; -ROPI0.5T3 PO; +ROPI0.5T33 PO; -TETRACAINE 0.5% OPHTH SOLN 4ML OS SCH
== END ==
LOC: M SFHCADAM 14:07
PROVIDERS: ATTEND Family Medicine
DX: G25.81 Restless legs syndrome (principal); E03.9 Hypothyroidism, unspecified; R73.03 Prediabetes; E78.5 Hyperlipidemia, unspecified

== ENCOUNTER → 2023-05-21 | Outpatient (REF) | payer MEDICARE, BC ==
[2023-05-21 17:30] LABS: BASO # 0.1 10^3/uL (0.0-0.2); BASO % 0.8 % (0.0-1.0); EOS # 0.2 10^3/uL (0.0-0.5); EOS % 1.7 % (0.0-3.0); HEMATOCRIT 45.6 % (36.0-47.0); HEMOGLOBIN 14.4 g/dl (12.0-15.5); LYMPH # 1.3 10^3/uL (1.5-5.0); LYMPH % 13.3 % (24.0-44.0); MEAN CORPUSCULAR HEMOGLOBIN 30.8 pg (27.0-33.0); MEAN CORPUSCULAR HGB CONC 31.6 g/dl (32.0-36.5); MEAN CORPUSCULAR VOLUME 97.6 fl (80.0-96.0); MONO % 10.1 % (2.0-8.0); NEUTROPHILS # 7.3 10^3/uL (1.5-8.5); NEUTROPHILS % 73.8 % (36.0-66.0); PLATELET COUNT, AUTOMATED 274 10^3/uL (150-450); RED BLOOD COUNT 4.67 10^6/uL (4.00-5.40); WHITE BLOOD COUNT 9.9 10^3/uL (4.0-10.0)
[2023-05-21 17:59] LABS: ALBUMIN 3.4 G/DL (3.2-5.2); BILIRUBIN,TOTAL 0.5 MG/DL (0.3-1.2); CALCIUM LEVEL 9.3 MG/DL (8.3-10.6); CREATININE FOR GFR 1.01 MG/DL (0.55-1.30); TOTAL PROTEIN 6.9 G/DL (5.7-8.2)
[2023-05-21 18:01] LABS: FERRITIN 100.5 NG/ML (7.3-270.7)
== END ==
LOC: M SFHCADAM 11:42
PROVIDERS: ATTEND Physician Assistant
DX: J40 Bronchitis, not specified as acute or chronic (principal); J44.9 Chronic obstructive pulmonary disease, unspecified; Z23 Encounter for immunization

== ENCOUNTER → 2023-05-21 | Outpatient (CLI) | payer MEDICARE, BC | LOC: M ADAMS 12:05 | PROVIDERS: ATTEND Physician Assistant | DX: J40 Bronchitis, not specified as acute or chronic (principal); J44.9 Chronic obstructive pulmonary disease, unspecified; Z23 Encounter for immunization ==

== ENCOUNTER → 2023-08-28 | Outpatient (CLI) | payer MEDICARE, BC ==
[~2023-08-28] MED LIST changes: +IRBE150T27 PO; -IRBE150T7 PO
[2023-08-28 12:58] LABS: HEMATOCRIT 44.2 % (36.0-47.0); HEMOGLOBIN 14.3 g/dl (12.0-15.5); MEAN CORPUSCULAR HEMOGLOBIN 31.2 pg (27.0-33.0); MEAN CORPUSCULAR HGB CONC 32.4 g/dl (32.0-36.5); MEAN CORPUSCULAR VOLUME 96.3 fl (80.0-96.0); PLATELET COUNT, AUTOMATED 264 10^3/uL (150-450); RED BLOOD COUNT 4.59 10^6/uL (4.00-5.40); WHITE BLOOD COUNT 6.6 10^3/uL (4.0-10.0)
[2023-08-28 13:06] LABS: ALBUMIN 3.6 G/DL (3.2-5.2); BILIRUBIN,TOTAL 0.4 MG/DL (0.3-1.2); CALCIUM LEVEL 9.2 MG/DL (8.3-10.6); CHOLESTEROL RISK RATIO 3.79 (<5); CREATININE FOR GFR 0.97 MG/DL (0.55-1.30); GLOMERULAR FILTRATION RATE 58.7 (>32); HDL CHOLESTEROL 48.8 MG/DL (>40); LDL CHOLESTEROL 115.2 MG/DL (<100); NON-HDL-C 136.2 MG/DL; POTASSIUM SERUM 3.7 MMOL/L (3.5-5.1)
[2023-08-28 13:07] LABS: FERRITIN 70.9 NG/ML (7.3-270.7); THYROID STIMULATING HORMONE 1.537 uIU/ML (0.55-4.78)
[2023-08-28 13:08] LABS: FREE T4 1.37 NG/DL (0.89-1.76)
[2023-08-28 13:17] LABS: HEMOGLOBIN A1c 5.6 % (4.0-6.0)
== END ==
LOC: M WUC 10:47
PROVIDERS: ATTEND Family Medicine
DX: G25.81 Restless legs syndrome (principal); E03.9 Hypothyroidism, unspecified; R73.03 Prediabetes; E78.5 Hyperlipidemia, unspecified; Z86.39 Personal history of other endocrine, nutritional and metabolic disease

== ENCOUNTER 2023-10-19 11:38 | Observation (INO) | payer MEDICARE, BC ==
[~2023-10-19] VITALS: Ht 160 cm; Wt 77.8 kg
[~2023-10-19 11:38] MED LIST changes: -FLON1SPR; +FLON1SPR NARES
[2023-10-19] MEDS: methylPREDNISolone 125MG 2ML VIAL IV ONE (14:47)
[2023-10-19 15:04] VITALS: O2SAT 94
[2023-10-19] MEDS: IPRATROPIUM 0.5MG/ALBUTEROL 2.5MG INH SOL UD 3ML (DUONEB) NEB ONE (15:05)
[2023-10-19 15:06] LABS: BASO # 0.1 10^3/uL (0.0-0.2); BASO % 0.4 % (0.0-1.0); EOS # 0.1 10^3/uL (0.0-0.5); EOS % 0.7 % (0.0-3.0); HEMATOCRIT 45.3 % (36.0-47.0); LYMPH % 8.2 % (24.0-44.0); MEAN CORPUSCULAR HGB CONC 33.1 g/dl (32.0-36.5); MEAN CORPUSCULAR VOLUME 93.6 fl (80.0-96.0); MONO # 1.7 10^3/uL (0.0-0.8); MONO % 13.5 % (2.0-8.0); NEUTROPHILS # 9.5 10^3/uL (1.5-8.5); NEUTROPHILS % 76.8 % (36.0-66.0); PLATELET COUNT, AUTOMATED 273 10^3/uL (150-450); RED BLOOD COUNT 4.84 10^6/uL (4.00-5.40); WHITE BLOOD COUNT 12.3 10^3/uL (4.0-10.0)
[2023-10-19 15:28] LABS: CK-MB VALUE MASS 2.3 NG/ML (<3.6)
[2023-10-19 15:31] LABS: ALBUMIN 3.5 G/DL (3.2-5.2); BILIRUBIN,DIRECT 0.2 MG/DL (<0.4); BILIRUBIN,TOTAL 0.7 MG/DL (0.3-1.2); CREATININE FOR GFR 1.02 MG/DL (0.55-1.30); GLOMERULAR FILTRATION RATE 55.4 (>32); POTASSIUM SERUM 3.8 MMOL/L (3.5-5.1); TOTAL PROTEIN 7.2 G/DL (5.7-8.2)
[2023-10-19 15:32] LABS: THYROID STIMULATING HORMONE 0.687 uIU/ML (0.55-4.78); THYROXINE (T4) 13.8 UG/DL (4.5-10.9)
[2023-10-19 15:33] LABS: MB/CK RELATIVE INDEX 1.96 (< OR =4)
[2023-10-19] MEDS: cefTRIAXone SOD 1 GM in D5W MINI-BAG PLUS 50 ML IV ONE (16:01)
[2023-10-19] MEDS: DOXYCYCLINE HYCLATE 100MG TABLET PO ONE (16:01)
[2023-10-19] MEDS: ACETAMINOPHEN TAB 650MG DOSE (2X325MG) PO ONE (16:05)
[2023-10-19] MEDS: NS 1,000 ML IV ONE ×2 (16:21→17:43)
[2023-10-19] MEDS ORDERED: MAALOX 30 ML SUSP *UDC PO PRN (17:20)
[2023-10-19] MEDS ORDERED: ACETAMINOPHEN TAB 650MG DOSE (2X325MG) PO PRN (17:20)
[2023-10-19] MEDS ORDERED: MOM 30ML SUSPENSION UDC PO PRN (17:20)
[2023-10-19] MEDS ORDERED: IPRATROPIUM 0.5MG/ALBUTEROL 2.5MG INH SOL UD 3ML (DUONEB) NEB PRN (17:20)
[2023-10-19 17:46] LABS: PROCALCITONIN 0.16 ng/ml
[2023-10-19] MEDS ORDERED: VITA100093 PO (18:28)
[2023-10-19] MEDS ORDERED: HOME MED LIST COMPLETE! XX SCH (18:30)
[2023-10-19] MEDS ORDERED: FLUTICASONE PROP 0.05% NASAL SPRAY 16 GM (FLONASE) NARES PRN (18:45)
[2023-10-19] MEDS: NS 1,000 ML IV SCH (19:09)
[2023-10-19 19:28] LABS: HEMOGLOBIN A1c 5.6 % (4.0-6.0)
[2023-10-19 20:02] VITALS: BP 144/77; TEMP 98.2; O2SAT 93
[2023-10-19] MEDS: IPRATROPIUM 0.5MG/ALBUTEROL 2.5MG INH SOL UD 3ML (DUONEB) NEB SCH (20:33)
[2023-10-19] MEDS: HEPARIN SOD (PORCINE) 5000UNITS/ML 1ML VIAL/SYRINGE SC SCH (20:54)
[2023-10-19] MEDS: guaiFENesin ER TABLET 600 MG TAB PO SCH (20:56)
[2023-10-19] MEDS: DOCUSATE SODIUM 100MG CAPSULE PO SCH (21:03)
[2023-10-20] VITALS: BP 131/79; TEMP 97.9; O2SAT 92
[2023-10-20 04:00] VITALS: BP 138/74; TEMP 98.4; O2SAT 94
[2023-10-20] MEDS: DOXYCYCLINE HYCLATE 100 MG in D5W MINI-BAG PLUS 100 ML IV SCH (05:23)
[2023-10-20] MEDS: LEVOTHYROXINE 137MCG TABLET (0.137MG) PO SCH (05:23)
[2023-10-20 05:47] LABS: BASO % 0.1 % (0.0-1.0); HEMATOCRIT 45.6 % (36.0-47.0); HEMOGLOBIN 15.2 g/dl (12.0-15.5); LYMPH % 9.7 % (24.0-44.0); MEAN CORPUSCULAR HEMOGLOBIN 30.7 pg (27.0-33.0); MEAN CORPUSCULAR HGB CONC 33.3 g/dl (32.0-36.5); MEAN CORPUSCULAR VOLUME 92.1 fl (80.0-96.0); MONO # 0.6 10^3/uL (0.0-0.8); MONO % 6.3 % (2.0-8.0); NEUTROPHILS # 8.4 10^3/uL (1.5-8.5); NEUTROPHILS % 83.2 % (36.0-66.0); PLATELET COUNT, AUTOMATED 328 10^3/uL (150-450); RED BLOOD COUNT 4.95 10^6/uL (4.00-5.40)
[2023-10-20 06:10] LABS: BLOOD UREA NITROGEN 18 MG/DL (9-23); CALCIUM LEVEL 8.7 MG/DL (8.3-10.6); CARBON DIOXIDE LEVEL 24 MMOL/L (20-31); CHLORIDE LEVEL 104 MMOL/L (98-107); CREATININE FOR GFR 0.93 MG/DL (0.55-1.30); GLOMERULAR FILTRATION RATE > 60.0 (>32); GLUCOSE, FASTING 174 MG/DL (74-106); MAGNESIUM LEVEL 1.8 MG/DL (1.8-2.4); POTASSIUM SERUM 3.3 MMOL/L (3.5-5.1); SODIUM LEVEL 139 MMOL/L (136-145)
[2023-10-20 07:36] VITALS: BP 161/80; TEMP 96.9; O2SAT 93
[2023-10-20] MEDS: IRBESARTAN 150MG TAB PO SCH (09:31)
[2023-10-20] MEDS: predniSONE 20 MG TAB PO SCH (09:32)
[2023-10-20] MEDS: METOPROLOL TARTRATE 100MG TAB PO SCH (09:33)
[2023-10-20] MEDS: VITAMIN D 1,000 INTERNATIONAL UNITS TABLET PO SCH (09:34)
[2023-10-20] MEDS: amLODIPine 5 MG TAB PO SCH (09:34)
[2023-10-20] MEDS: CALCIUM/VITAMIN D 500 MG TAB PO SCH (09:35)
[2023-10-20] MEDS: POTASSIUM CHLORIDE 10MEQ SR TABLET PO ONE (09:35)
[2023-10-20 10:18] VITALS: O2SAT 97
[2023-10-20] MEDS ORDERED: DOXY-444 PO (10:25)
[2023-10-20] MEDS ORDERED: PRED20TA PO (10:25)
[2023-10-20] MEDS ORDERED: AMOX875T2 PO (10:25)
[2023-10-20] MEDS ORDERED: IPRA0.00 INH (10:25)
[2023-10-20] MEDS ORDERED: POTA10TA67 PO (10:25)
[2023-10-20] MEDS ORDERED: MUCI600T31 PO (10:25)
[2023-10-20] MEDS ORDERED: ANOR1AER PO (10:25)
[2023-10-20] MEDS ORDERED: cefTRIAXone SOD 1 GM in D5W MINI-BAG PLUS 50 ML IV SCH (16:00)
[2023-10-20] MEDS ORDERED: DOXYCYCLINE HYCLATE 100MG TABLET PO SCH (21:00)
== END 2023-10-20 12:01 | disposition home health service (06) ==
LOC: M ED 11:38 → M ED INP 17:16 → INTOOBSV 17:16 → M PCU 20:47
PROVIDERS: ADMIT Internal Medicine; ATTEND Internal Medicine
DX: J44.1 Chronic obstructive pulmonary disease with (acute) exacerbation (principal); R09.02 Hypoxemia; B34.1 Enterovirus infection, unspecified; I10 Essential (primary) hypertension; E78.5 Hyperlipidemia, unspecified; E03.9 Hypothyroidism, unspecified; E55.9 Vitamin D deficiency, unspecified; E87.6 Hypokalemia; R73.03 Prediabetes; Z79.899 Other long term (current) drug therapy; Z79.52 Long term (current) use of systemic steroids; J30.2 Other seasonal allergic rhinitis; Z88.8 Allergy status to other drugs, medicaments and biological substances; Z91.012 Allergy to eggs; Z87.891 Personal history of nicotine dependence
CPT/HCPCS: 36415; 71045; 71250; 80048; 80076; 82550; 82553; 83036; 83605; 83735; 83880; 84145; 84436; 84443; 84484; 85025; 87040; 87486; 87581; 87633; 87798; 93005; 93041; 94640; 94760; 96361; 96365; 96367; 96372; 96375; 96376; 97161; 99285; G0378; J0696; J2930; J7512

== ENCOUNTER → 2023-10-23 | Outpatient (REF) | payer MEDICARE, BC ==
[~2023-10-23] MED LIST changes: +AMOX875T2 PO; +ANOR1AER PO; +DOXY-444 PO; +IPRA0.00 INH; +MUCI600T31 PO; +POTA10TA67 PO; +PRED20TA PO; +VITA100093 PO
[2023-10-23 16:47] LABS: HEMATOCRIT 43.5 % (36.0-47.0); MEAN CORPUSCULAR HEMOGLOBIN 30.4 pg (27.0-33.0); MEAN CORPUSCULAR HGB CONC 32.2 g/dl (32.0-36.5); MEAN CORPUSCULAR VOLUME 94.6 fl (80.0-96.0); PLATELET COUNT, AUTOMATED 363 10^3/uL (150-450); WHITE BLOOD COUNT 7.7 10^3/uL (4.0-10.0)
[2023-10-23 17:14] LABS: BLOOD UREA NITROGEN 21 MG/DL (9-23); CALCIUM LEVEL 8.9 MG/DL (8.3-10.6); CARBON DIOXIDE LEVEL 31 MMOL/L (20-31); CHLORIDE LEVEL 101 MMOL/L (98-107); CREATININE FOR GFR 0.93 MG/DL (0.55-1.30); GLOMERULAR FILTRATION RATE > 60.0 (>32); GLUCOSE, FASTING 90 MG/DL (74-106); POTASSIUM SERUM 3.6 MMOL/L (3.5-5.1); SODIUM LEVEL 139 MMOL/L (136-145)
[2023-10-23 17:16] LABS: FREE T4 1.63 NG/DL (0.89-1.76); THYROID STIMULATING HORMONE 0.341 uIU/ML (0.55-4.78)
== END ==
LOC: M SFHCADAM 11:56
PROVIDERS: ATTEND Family Medicine
DX: E03.9 Hypothyroidism, unspecified (principal); E87.6 Hypokalemia; J18.9 Pneumonia, unspecified organism

== ENCOUNTER → 2023-12-11 | Outpatient (CLI) | payer MEDICARE, BC ==
[~2023-12-11] MED LIST changes: +DOXY-440 PO; -DOXY-444 PO
== END ==
LOC: M PLAIMG 11:18
PROVIDERS: ATTEND Family Medicine
DX: J18.9 Pneumonia, unspecified organism (principal); N28.1 Cyst of kidney, acquired

== ENCOUNTER → 2024-05-31 | Outpatient (CLI) | payer MEDICARE, BC ==
[2024-05-31 11:52] LABS: HEMOGLOBIN 14.4 g/dl (12.0-15.5); MEAN CORPUSCULAR HEMOGLOBIN 30.4 pg (27.0-33.0); MEAN CORPUSCULAR VOLUME 94.9 fl (80.0-96.0); PLATELET COUNT, AUTOMATED 245 10^3/uL (150-450); RED BLOOD COUNT 4.74 10^6/uL (4.00-5.40); WHITE BLOOD COUNT 4.6 10^3/uL (4.0-10.0)
[2024-05-31 12:05] LABS: INR 1.04; PARTIAL THROMBOPLASTIN TIME 28.8 SECONDS (24.8-34.2); PROTHROMBIN TIME 13.3 SECONDS (12.5-14.5)
[2024-05-31 12:28] LABS: HEMOGLOBIN A1c 5.8 % (4.0-6.0)
[2024-05-31 12:33] LABS: ALBUMIN 3.7 G/DL (3.2-5.2); BILIRUBIN,TOTAL 0.6 MG/DL (0.3-1.2); CHOLESTEROL RISK RATIO 3.56 (<5); CREATININE FOR GFR 1.05 MG/DL (0.55-1.30); FREE T4 1.75 NG/DL (0.89-1.76); GLOMERULAR FILTRATION RATE 53.4 (>32); HDL CHOLESTEROL 51.3 MG/DL (>40); LDL CHOLESTEROL 112.1 MG/DL (<100); NON-HDL-C 131.7 MG/DL; THYROID STIMULATING HORMONE 1.247 uIU/ML (0.55-4.78); TOTAL PROTEIN 7.3 G/DL (5.7-8.2)
== END ==
LOC: M WUC 09:32
PROVIDERS: ATTEND Family Medicine
DX: R23.3 Spontaneous ecchymoses (principal); R60.0 Localized edema; G25.81 Restless legs syndrome; E03.9 Hypothyroidism, unspecified; I10 Essential (primary) hypertension; R73.03 Prediabetes; E78.5 Hyperlipidemia, unspecified

== ENCOUNTER → 2024-11-21 | Outpatient (CLI) | payer MEDICARE, BC | LOC: M WHC 12:23 | PROVIDERS: ATTEND Family Medicine | DX: M79.89 Other specified soft tissue disorders (principal); R60.0 Localized edema ==

== ENCOUNTER → 2024-12-02 | Outpatient (CLI) | payer MEDICARE | LOC: M RAD 11:23 | PROVIDERS: ATTEND Physician Assistant | DX: L03.115 Cellulitis of right lower limb (principal); M79.89 Other specified soft tissue disorders ==

== ENCOUNTER → 2025-05-16 | Outpatient (CLI) | payer MEDICARE, BC ==
[2025-05-16 12:31] LABS: PLATELET COUNT, AUTOMATED 250 10^3/uL (150-450)
[2025-05-16 14:38] LABS: ESTIMATED AVERAGE GLUCOSE 120.0 MG/DL (60-110)
[2025-05-16 15:33] LABS: ALT/SGPT 15.0 U/L (7.0-40); AST/SGOT 17.0 U/L (<34); CALCIUM LEVEL 9.1 MG/DL (8.3-10.6); CARBON DIOXIDE LEVEL 31.0 MMOL/L (20-31); CHLORIDE LEVEL 103.0 MMOL/L (98-107); CHOLESTEROL LEVEL 190.0 MG/DL (<200); CHOLESTEROL RISK RATIO 3.55 (<5); CREATININE FOR GFR 1.15 MG/DL (0.55-1.30); GLOMERULAR FILTRATION RATE 47.3 (>32); LDL CHOLESTEROL 118.9 MG/DL (<100); NON-HDL-C 136.5 MG/DL; POTASSIUM SERUM 4.1 MMOL/L (3.5-5.1); SODIUM LEVEL 144.0 MMOL/L (136-145); TRIGLYCERIDES LEVEL 88.0 MG/DL (<150)
[2025-05-16 15:37] LABS: FREE T4 1.41 NG/DL (0.89-1.76)
== END ==
LOC: M WUC 10:56
PROVIDERS: ATTEND Family Medicine
DX: G25.81 Restless legs syndrome (principal); M79.89 Other specified soft tissue disorders; E03.9 Hypothyroidism, unspecified; R73.03 Prediabetes; E78.5 Hyperlipidemia, unspecified